=== PATIENT | female | born 1940 | race Caucasian/White ===

== ENCOUNTER → 2016-10-25 | Outpatient (CLI) | payer MEDICARE, OTHER ==
[2016-07-31 11:00] VITALS: BP 120/70
--- NOTE | 2016-10-25 10:11 | EKG ---
[facility] [address] [place] [id number] Test Date: 2016-10-25 Test Time: 10:09:21 Pat Name: GRUPO TO Department: Room: Gender: F Professor Of Biological Sciences: REKHA : 1940 Requested By: KENISHA SON Order Number: [id number] Reading MD: Measurements Intervals [place] Rate: 54 P: 34 TX: 186 QRS: -23 QRSD: 84 T: 11 QT: 500 QTc: 481 Interpretive Statements SINUS RHYTHM LEFTWARD AXIS R-S TRANSITION ZONE IN V LEADS DISPLACED TO THE RIGHT PROLONGED QT NO SPECIFIC ECG ABNORMALITIES RI6.01 Compared to ECG 07/26/2016 18:32:25 Prolonged QT interval now present
--- NOTE | 2016-10-25 13:27 | CARD ---
APPROVED REPORT EXAM: Two-dimensional and M-mode echocardiogram with Doppler and color Doppler. Other Information Quality : Average Rhythm : NSR INDICATION Atrial Fibrillation 2D DIMENSIONS RVDd2.1 (2.9-3.5cm)Left Atrium(2D)2.9 (1.6-4.0cm) IVSd1.0 (0.7-1.1cm)Aortic Root(2D)2.7 (2.0-3.7cm) LVDd4.8 (3.9-5.9cm)LVOT Diameter2.0 (1.8-2.4cm) PWd1.0 (0.7-1.1cm)LVDs2.7 (2.5-4.0cm) FS (%) 24.3 %SV82.6 ml LVEF(%)55.4 (>50%) Aortic Valve AoV Peak Anibal.108.8cm/sAoV VTI25.3cm AO Peak GR.4.7mmHgLVOT Peak Anibal.98.2cm/s LVOT VTI 24.04cmAO Mean GR.3mmHg KIAN (VMAX)2.43xj1VUP (VTI)2.85cm2 Mitral Valve MV E Rvdbesch71.9cm/sMV DECEL [id number] MV A Znfuvpbl48.9cm/sMV E Mean Gr.1mmHg MV HSY03huH/A Ratio1.0 MV A [id number] (PHT)2.86cm2 TDI E/Lateral E'6.1E/Medial E'8.3 Pulmonary Valve PV Peak Rgwpwszp96.6cm/sPV Peak Grad.3mmHg RVOT VTI20.2cm Tricuspid Valve TR P. Tvqveeep649sb/sRAP PFPKXHEV9cxNg TR Peak Gr.46btBhLALK10jpQd LEFT VENTRICLE The left ventricle is normal size. There is normal left ventricular wall thickness. Left ventricle sy stolic function is normal. The Ejection Fraction is 50-55%. There is normal LV segmental wall motion. The left ventricular diastolic function and filling is normal for age. RIGHT VENTRICLE The right ventricle is normal size. The right ventricular systolic function is normal. ATRIA The left atrium size is normal. The right atrium size is normal. The interatrial septum is intact wit h no evidence for an atrial septal defect or patent foramen ovale as noted on 2-D or Doppler imaging. AORTIC VALVE The aortic valve is calcified but opens well. The aortic valve is trileaflet. Doppler and Color Flow revealed no significant aortic regurgitation. There is no significant aortic valvular stenosis. MITRAL VALVE The mitral valve is normal in structure and function. There is no mitral valve stenosis. Doppler and Color Flow revealed trace to mild mitral regurgitation. TRICUSPID VALVE The tricuspid valve is normal in structure and function. Doppler and Color Flow revealed trace to mil d tricuspid regurgitation. The PA pressure was estimated at 25 mmHg. There is no tricuspid valve sten osis. PULMONIC VALVE The pulmonic valve is not well visualized. Doppler and Color Flow revealed no pulmonic valvular regur gitation. There is no pulmonic valvular stenosis. GREAT VESSELS The aortic root is normal in size. Normal pulmonary venous flow (Doppler). The IVC is dilated and col lapses >50% with inspiration. PERICARDIAL EFFUSION There is no evidence of significant pericardial effusion. Critical Notification Critical Value: No <Conclusion> The left ventricle is normal size. Left ventricle systolic function is normal. The Ejection Fraction is 50-55%. There is no significant aortic valvular stenosis. Doppler and Color Flow revealed no significant aortic regurgitation. Doppler and Color Flow revealed trace to mild mitral regurgitation. Doppler and Color Flow revealed trace to mild tricuspid regurgitation. The PA pressure was estimated at 25 mmHg. There is no evidence of significant pericardial effusion.
== END | disposition home or self-care (01) ==
LOC: ECHO 09:20
PROVIDERS: ATTEND Internal Medicine Cardiovascular Disease
DX: I48.0 Paroxysmal atrial fibrillation (principal); I08.1 Rheumatic disorders of both mitral and tricuspid valves
CPT/HCPCS: 93005; 93306